=== PATIENT | female | born 1955 | race Caucasian/White ===

== ENCOUNTER 2020-01-12 17:20 | Emergency (ER) | payer BC, SELFPAY ==
[2020-01-12 17:26] VITALS: BP 131/73; PULSE 77; RESP 16; TEMP 36.8; O2SAT 99
--- NOTE | 2020-01-12 17:52 | ED.GENADULT ---
HPI - General Adult General Chief complaint: Skin/Abscess/Foreign Body Stated complaint: sore on left arm Time Seen by Provider: 01/12/20 17:52 Source: patient Mode of arrival: ambulatory Limitations: no limitations History of Present Illness HPI narrative: 64-year-old female patient presents to the [facility] with complaints of a sore on her left elbow area. Patient states is been there for several months and was supposed to have it removed however her surgery got canceled due to the pandemic. Patient states that she noticed that an area of it was starting to get red but denies any warmth. States it is a little tender when it is touched. Patient denies any fevers, chest pain or shortness of breath. Patient states that she called her doctor and they recommended that she come to the ER and get a drain. Related Data Home Medications Medication Instructions Recorded Confirmed fluoxetine 20 mg PO DAILY 01/12/20 01/12/20 Allergies Allergy/AdvReac Type Severity Reaction Status Date / Time No Known Allergies Allergy Mild Unverified 01/12/20 17:55 Review of Systems Review of Systems: Narrative: CONSTITUTIONAL: Denies fever, chills, or sweats. EYES: Denies visual changes, redness, or discharge. ENT: Denies rhinorrhea, congestion, sore throat, or otalgia. CARDIOVASCULAR: Denies chest pain, palpitations, or edema. RESPIRATORY: Denies cough or dyspnea. GASTROINTESTINAL: Denies abdominal pain, nausea, vomiting, or diarrhea. GENITOURINARY: Denies dysuria or hematuria. SKIN: Denies rash or itching. Positive cyst-like wound to the left elbow MUSCULOSKELETAL: Denies back pain, joint pain, or myalgia. NEUROLOGIC: Denies headache, numbness, or weakness. PSYCHIATRIC: Denies anxiety or depression. PMFSH Family History Family History Other Cerebrovascular accident Family history of arthritis Social History Social History Smoking status: Never smoker Alcohol intake: current Comments At the time of my signature I agree with nursing past medical history, surgical, social, and family history. There is no relevant family history pertinent to the presenting complaint. Exam Narrative: Exam Narrative: GENERAL: Well-appearing, well-nourished, and in no acute distress. HEAD: Normocephalic, atraumatic. EYES: PERRLA and EOMI. ENT: Nares clear, no rhinorrhea or epistaxis. Mucous membranes moist. NECK: Supple. No lymphadenopathy CHEST: Clear to auscultation. No respiratory distress. HEART: Regular rate and rhythm. No murmur heard. Normal peripheral pulses. ABDOMEN: Soft, nontender, nondistended, normal active bowel sounds. EXTREMITIES: Normal range of motion. No edema. SKIN: Warm, dry, no rash. Patient has a small 0.5 raised papule to the left elbow area on the posterior side. There is no open wounds or drainage noted. There is no surrounding erythema or warmth noted. NEURO: No focal deficits. Alert and oriented x3. Course Vital Signs Vital signs: Vital Signs Temperature 36.8 C 01/12/20 17:26 Pulse Rate 77 01/12/20 17:26 Respiratory Rate 16 01/12/20 17:26 Blood Pressure 131/73 01/12/20 17:26 Pulse Oximetry 99 01/12/20 17:26 Temperature 36.8 C 01/12/20 17:26 Pulse Rate 77 01/12/20 17:26 Respiratory Rate 16 01/12/20 17:26 Blood Pressure 131/73 01/12/20 17:26 Pulse Oximetry 99 01/12/20 17:26 Vital signs reviewed. The patient has been informed that they may have pre-hypertension or Hypertension based on a BP reading in the department. I recommend that the patient call the primary care provider listed on their discharge instructions or a physician of their choice this week to arrange follow up for further evaluation of possible pre-hypertension or Hypertension Procedures Abscess I/D upper extremity: Date of Incision: 01/12/20 Time of Incision: 17:59 Side (if a
== END 2020-01-12 18:15 | disposition home or self-care (01) ==
PROVIDERS: Emergency Provider Nurse Practitioner Family
DX: L02.414 Cutaneous abscess of left upper limb (principal)
CPT/HCPCS: 10060; 99213; G0463

== ENCOUNTER 2020-08-09 15:12 | Outpatient (CLI) | payer BC, SELFPAY ==
--- NOTE | ~2020-08-09 | MM_ITS ---
EXAMINATION: MM screening tommy BI w jen HISTORY: Screening TECHNIQUE: Craniocaudal and mediolateral oblique 3-D tomosynthesis images were obtained and synthetic 2-D images were generated. CAD analysis was submitted and interpreted. COMPARISON: Comparison to multiple prior studies sequentially, with oldest reviewed study dated 01/2014. BREAST PARENCHYMAL COMPOSITION: The breasts are heterogeneously dense, which may obscure small masses . FINDINGS: There is no evidence of suspicious mass, calcification, or architectural distortion to sugg est malignancy in either breast. There has been no suspicious interval change. IMPRESSION: 1. No mammographic evidence of malignancy. 2. Recommend routine screening mammography in one year. BI-RADS Category 1: Negative Reviewed, dictated and finalized at location A. STRIAL ECONOMIST
== END 2020-08-09 15:13 | disposition home or self-care (01) ==
LOC: ANHIMG 15:13
PROVIDERS: PCP Obstetrics & Gynecology; Visit Provider Obstetrics & Gynecology
DX: Z12.31 Encounter for screening mammogram for malignant neoplasm of breast (principal)
CPT/HCPCS: 77063; 77067

== ENCOUNTER 2021-09-07 07:55 | Outpatient (CLI) | payer BC, SELFPAY ==
--- NOTE | ~2021-09-07 | MM_ITS ---
EXAMINATION: MM screening tommy BI w jen HISTORY: Screening mammogram, family history of breast cancer in her mother. TECHNIQUE: Craniocaudal and mediolateral oblique 3-D tomosynthesis images were obtained and synthetic 2-D images were generated. CAD analysis was submitted and interpreted. COMPARISON: 08/09/2020, 06/23/2019, 06/19/2018 BREAST PARENCHYMAL COMPOSITION: The breasts are heterogeneously dense, which may obscure small masses . FINDINGS: Again noted is stable architectural distortion of left breast at the site of prior excision al biopsy. There is no evidence of suspicious mass, calcification, or architectural distortion to sug gest malignancy in either breast. There has been no suspicious interval change. IMPRESSION: 1. No mammographic evidence of malignancy. 2. Recommend routine screening mammography in one year. BI-RADS Category 2: Benign finding(s). Reviewed, dictated and finalized at location A. TRONICS MAINTENANCE TECHNICIAN
== END 2021-09-07 07:56 | disposition home or self-care (01) ==
LOC: ANHIMG 07:57
PROVIDERS: PCP Obstetrics & Gynecology; Visit Provider Obstetrics & Gynecology
DX: Z12.31 Encounter for screening mammogram for malignant neoplasm of breast (principal)
CPT/HCPCS: 77063; 77067

== ENCOUNTER 2022-10-11 12:31 | Outpatient (CLI) | payer MEDICARE, SELFPAY ==
--- NOTE | ~2022-10-11 | MM_ITS ---
EXAMINATION: MM screening tommy BI w jen HISTORY: Screening mammogram TECHNIQUE: Craniocaudal and mediolateral oblique 3-D tomosynthesis images were obtained and synthetic 2-D images were generated. CAD analysis was submitted and interpreted. COMPARISON: September 07, 2021, August 09, 2020, June 23, 2019 bilateral screening mammogram exami nations BREAST PARENCHYMAL COMPOSITION: The breasts are heterogeneously dense, which may obscure small masses . FINDINGS: There is a biopsy marker on the right; history of prior benign bilateral breast biopsies. S table fibroglandular asymmetry. There is no evidence of suspicious mass, calcification, or architectu ral distortion to suggest malignancy in either breast. There has been no suspicious interval change. IMPRESSION: 1. No mammographic evidence of malignancy. 2. Recommend routine screening mammography in one year. BI-RADS Category 2: Benign finding(s). Reviewed, dictated and finalized at location A.
== END 2022-10-11 12:32 | disposition home or self-care (01) ==
LOC: ANHIMG 12:32
PROVIDERS: PCP Hospitalist; Visit Provider Obstetrics & Gynecology
DX: Z12.31 Encounter for screening mammogram for malignant neoplasm of breast (principal)
CPT/HCPCS: 77063; 77067

== ENCOUNTER 2023-12-11 08:27 | Outpatient (CLI) | payer MEDICARE, SELFPAY ==
--- NOTE | ~2023-12-11 | MM_ITS ---
EXAMINATION: MM screening tommy BI w jen HISTORY: Screening mammogram, family history of breast cancer in her mother. TECHNIQUE: Craniocaudal and mediolateral oblique 3-D tomosynthesis images were obtained and synthetic 2-D images were generated. CAD analysis was submitted and interpreted. COMPARISON: 10/11/2022, 09/07/2021, 08/09/2020 BREAST PARENCHYMAL COMPOSITION:Dense: The breasts are heterogeneously dense, which may obscure small masses. FINDINGS: No suspicious mass, calcification, or architectural distortion are identified in either alex ast to suggest malignancy. There has been no suspicious interval change. IMPRESSION: No mammographic evidence of malignancy. Recommend routine screening mammography in one year. BI-RADS Category 1: Negative Reviewed, dictated and finalized at location .
== END 2023-12-11 08:28 | disposition home or self-care (01) ==
PROVIDERS: PCP Hospitalist; Visit Provider Obstetrics & Gynecology
DX: Z12.31 Encounter for screening mammogram for malignant neoplasm of breast (principal)
CPT/HCPCS: 77063; 77067

== ENCOUNTER 2024-12-25 09:27 | Outpatient (CLI) | payer MEDICARE, SELFPAY ==
--- NOTE | ~2024-12-25 | MM_ITS ---
EXAMINATION: MM screening tommy BI w jen HISTORY: Screening TECHNIQUE: Craniocaudal and mediolateral oblique 3-D tomosynthesis images were obtained and synthetic 2-D images were generated. CAD analysis was submitted and interpreted. COMPARISON: Comparison to multiple prior studies sequentially, with oldest reviewed study dated 05/31. BREAST PARENCHYMAL COMPOSITION: Dense: The breasts are extremely dense, which lowers the sensitivity of mammography. FINDINGS: There is no evidence of suspicious mass, calcification, or architectural distortion to sugg est malignancy in either breast. There has been no suspicious interval change. IMPRESSION: 1. No mammographic evidence of malignancy. 2. Recommend routine screening mammography in one year. BI-RADS Category 1: Negative Reviewed, dictated and finalized at location A.
--- OUTSIDE RECORDS SUMMARY | 2024-12-25 09:31 | XMS_ITS | Clinical Summary ---
Author Organization [facility] Address [address] [place] [address] Phone Care Team Providers Care Field Consultant Name Role Phone Unavailable Primary Care Provider Unavailabl e Allergies No known active allergies Medications risedronate (ACTONEL) 150 mg Oral Tab Take 150 mg by mouth every 30 days. Active FLUoxetine (PROZAC) 40 mg Oral capsule Take 40 mg by mouth daily. Active CALCIUM CITRATE/VITAMIN D3 (CITRACAL + D ORAL) Take 800 mg by mouth daily. Active omeprazole (PRILOSEC) 20 mg Oral CpDRIndications :Sore throat Take 1 Cap by mouth daily. 30 minutes before breakfast. 30 Cap 6 3 Active cholestyramine, with sugar, (QUESTRAN) 4 gram Oral PackIndications :Diarrhea Take 1 Packet by mouth 2 times daily. Take 2 hours before or after other medications 60 Packet 6 3 Active Active Problems Patient Care Coordination No te Formatting of this note migh t be different from the original. GI-[facility] No known active problems Family History Medical History Relation Name Comments Celiac Disease Neg Hx Colon Cancer Neg Hx Colon Polyps Neg Hx Crohn's Disease Neg Hx Inflammatory Bowel Disease Neg Hx Liver Disease Neg Hx Pancreatic Cancer Neg Hx Ulcerative Colitis Neg Hx Relation Name Status Comments Father Alive Mother Social History Tobacco Use Types Packs/Day Years Used Date Smoking Tobacco: Never Cigarettes Smokeless Tobacco: Never Alcohol Use Standard Drinks/Week Comments No 0 (1 standard drink = 0.6 oz pur e alcohol) Comments Unknown Sex and Gender Information Value Date Recorded Sex Assigned at Not on file Legal Sex 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 Gender Identity Not on file Sexual Orientation Not on file Last Filed Vital Signs Vital Sign Reading Time Taken Comments Blood Pressure 124/70 12/30/2012 9:11 AM CDT Pulse 76 12/30/2012 9:11 AM CDT Temperature 36.2 C (97.1 F) 12/06/2011 9:37 AM CDT Respiratory Rate 16 12/06/2011 10:06 AM CDT Oxygen Saturation 96% 12/06/2011 10:06 AM CDT Inhaled Oxygen Concentration - - Weight 54.9 kg (121 lb) 12/30/2012 9:11 AM CDT Height 160 cm (5' 3) 12/30/2012 9:11 AM CDT Body Mass Index 21.43 12/30/2012 9:11 AM CDT Plan of Treatment Health Maintenance Due Date Last Done Comments DTAP/TDAP/TD VACCINES (1 - Tdap) 1976 BREAST CANCER SCREENING 1997 FIT-DNA Q 3 years 2002 FIT/FOBT Q 1 year 2002 Flex Sig/CT Colonography Q 5 years 2002 PNEUMOCOCCAL VACCINE 50+ YEA RS (1 of 1 - PCV) 2007 ZOSTER VACCINE (1 of 2) 2007 COLORECTAL SCREENING 11/17/2020 11/17/2010, 11/18/19 11 Colorectal Cancer Screening 11/17/2020 OSTEOPOROSIS SCREENING 2022 INFLUENZA VACCINE (#1) 2024 03/18/2020 RSV VACCINE (60+ or ) (1 - 1-dose 75+ series) 2032 [place] [address] [facility] BLUE ACCESS/TRUE BLUE PPO Advance Directives For more information, please contact: [phone] * Full Code (Latest Code Status on File) Date Activated Date Inactivated Comments 12/06/2011 7:38 AM 12/07/2011 2:01 AM * Full Code Date Activated Date Inactivated Comments 11/17/2010 8:14 AM 11/18/2010 2:32 AM
--- OUTSIDE RECORDS SUMMARY | 2024-12-25 09:31 | XMS_ITS | Encounter Summary ---
Author Organization [facility] Address [address] [facility] [address] Attn: [place] [address] Care Team Providers Care Lot Worker Name Role Phone Unavailable Primary Care Provider Unavailabl e Encounter Details Date Type Department Care Team (Late st Contact Info) Description 07/07/1991 Outpatient Historical Marce South MD [address] [place] [address] [address] [place] [address] Social History Tobacco Use Types Packs/Day Years Used Date Smoking Tobacco: Never Assessed Comments Unknown Sex and Gender Information Value Date Recorded Sex Assigned at Not on file 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
--- OUTSIDE RECORDS SUMMARY | 2024-12-25 09:31 | XMS_ITS | Continuity of Care Document ---
Author Organization [facility] Address [address] [place] [address] Phone Care Team Providers Care Associate Designer Name Role Phone Laury OD, Chey Unavailable Unavailable Allergies, Adverse Reactions, Alerts Substance Reaction Status Criticality No Known Allergies Active No Inform ation Medications Medication Instructions Dosage Effective Dates (start - stop) Status Comments prednisolone acetate 1 % eye drops,suspension instill 1 drop by ophthalmic route 4 times every day into operative eye for 2 weeks, then 2 times per day for 2 weeks, then stop - Active moxifloxacin 0.5 % eye drops instill 1 drop by ophthalmic route 4 times every day into operative eye for 2 weeks, then stop - Active ketorolac 0.5 % eye drops instill 1 drop in operative eye 4 times every day for 2 weeks, then 2 times per day for 2 weeks, then stop - Active Prilosec OTC 20 mg tablet,delayed release take 1 tablet by oral route every day 1 tablet - Active Calcium 500 + D 500 mg-10 mcg (400 unit) tablet - Active Actonel 150 mg tablet take 1 tablet by o ral route every month on the same date; Take with a full glass of water and remain in an upright position 150 MG - Active fluoxetine 20 mg capsule take 2 capsule by oral route every day in the morning 40 MG - Active Procedures Procedure Date Laser Cataract SX With Toric Lens No Charge Refraction Post-op Follow-up Visit Drainage Of Eye Post-op Follow-up Visit [facility]Professional No Charge Refraction No Charge Optomap Fundus Photos 023 Post-op Follow-up Visit Post-op Follow-up Visit Laser Cataract SX With Toric Lens Remove Cataract, Insert Lens [facility]Professional No Charge GDX Retina [facility]Technical No Charge Refraction Office/outpatient Visit, [facility] No Charge [employer] Advance Directives Directive Yes / No Effective Date File Name No Information Encounters Encounter Description Practice Location Reason(s) For Visit Diagnoses Date Provider Providers Copied on Encounter [facility], [address] [place] [address] [address], [place], [place], [id number], tel:[phone] SEC John OTERO Professional No Information 4 Laury OD Chey. [address] [place] [address] [address], [address], [place], [place], [address], [place]. tel:[phone] [facility], [address] [place] [address] [address], [place], [place], [address], [place] tel:[phone] [facility] [place] No Information 3 Ros Mora. [address] [place], [place] [address], [address], [place], [place], [address], [place]. tel:[phone] Referring Provider: Will Coffey OD, [facility] [address], [place], [address]. tel:[phone] [facility], [address], [place], [place], [address], [place] tel:[phone] SEC [place] Professional Post-Op (chief complaint) Post op visit 3 Jens OD Jennifer. [address], [address], [place], [place], [address], [place]. tel:[phone] Referring Provider: Will Coffey OD, [facility] [address] [place], [address]. tel:[phone] [facility], [address], [place], [place], [address], [place] tel:[phone] SEC [place] Professional 1 day s/p TORIC IOL w/LensAR (chief complaint) Post op visitAqueous misdirection, left eye 3 Hernadez Sergo. [address] [facility], [address], [place], [place], [address], [place]. tel:[phone] Referring Provider: Will Coffey OD, [facility] [address] [place], [address]. tel:[phone] [facility], [address], [place], [place], [address], [place] tel:[phone] SEC [place] No Information 3 [place]. [facility] [address], [address], [place], [place], [address], [place]. tel:[phone] Referring Provider: Will Coffey OD, [facility] [address] [place], [address]. tel:[phone] [facility], [facility] [employer] [address], [place], [place], [address], [place] tel:[phone] SEC [place] Professional Cataract evaluation (chief complaint) Post op visit [address] [facility] [address], [address], [place], [place], [address], [place]. tel:[phone] Referring Provider: Will Coffey OD, [facility] [address] [place], [address]. tel:[phone] [facility], [facility] [employer] [address], [place], [place], [address], [place] tel:[phone] SEC John OTERO Professional 1 day postop (chief complaint) Post op visit 3 Satya Trotter. [address], [address] [place], [address], [place]. tel:[phone] Referring Provider: Will Coffey OD, [facility] [address] [place] [address], [address]. tel:[phone] [facility], [address] [place] [address] [address], [place], [place], [address], [place] tel:[phone] [facility] No Information 3 Satya Trotter. [address], [address] [place], [address], [place]. tel:[phone] Referring Provider: Will Coffey OD, [facility] [address] [place] [address], [address]. tel:[phone] [facility], [address], [place], [place], [address], [place] tel:[phone] SEC John OTERO Professional No Information 3 Satya Trotter. [address] [facility], [address] [place], [address], [place]. tel:[phone] Referring Provider: Will Coffey OD, [facility] [address] [place] [address], [address]. tel:[phone] [facility], [address], [place], [place], [address], [place] tel:[phone] SEC John OTERO Professional No Information 3 Satya Trotter. [address], [place], [address], [place]. tel:[phone] Office/outpa tient Visit, New [facility], [address], [place], [place], [address], tel:[phone] [employer] John SHANNA Professional Cataract evaluation (chief complaint) Age-related nuclear cataract, bilateral 3 Satya Trotter. [address] [facility], [address], [place], [place], [address], [place]. tel:[phone] Referring Provider: Will Coffey OD, [facility] [address] [facility] [facility], [place], [address]. tel:[phone] [facility], [address], [place], [place], [address], tel:[phone] [employer] SHANNA Professional No Information 3 Satya Trotter. [address] [facility], [address], [place], [place], [address], [place]. tel:[phone] Family History Family Member Type Diagnosis Age At Onset No Information Payers Payer name Insurance type Covered green party ID Authoriza tion(s) No Information Social History Type Description Quantity Date Captured Comments Alcohol Use Details Unknown Caffeine Use Details Unknown Tobacco Use Status No Information Smoking Status No Information Sex Female Chief Complaint And Reason For Visit No Information Reason For Referral Reason For Referral No Information Plan Of Treatment Date Type Action Status Patient Education The Eye: Anatomy Sketch completed History Of Present Illness Encounter Date Complaint History Of Prese nt Illness Post-Op The 67 year old patient presents for a 3 week post op CE with Toric IOL OS. Patient is using Pred and Ketorolac bid OS. Patient states ou is doing good. 1 day s/p TORIC IOL w/LensAR The 67 year old patient presents for evaluation of 1 day s/p TORIC IOL w/LensAR in the left eye. Patient states VA is brighter. Patient instructed to use Pred, Ket, and Poly as well as use of eye shield. Cataract evaluation The 67 year old patient presents for evaluation of Cataract evaluation in the left eye. Pt. had Toric PC/IOL w/ Lens AR OD 11/27/2022. Pt. is using Moxifloxacin qid, Pred. qid, and Ketorolac qid.Pt. states vision in OS is blurry. Pt. is having trouble seeing small print, watching tv, and seeing people across the street in OS. 1 day postop The 67 year old patient presents for evaluation of 1 day postop in the right eye. Pt. had Toric/IOL w/ Lens AR OD 11/27/2022. Pt. to start Pred 1% qid, Ketorolac qid, and Moxi qid. Reviewed postop instructions with patient. Pt. states no pain overnight. Things are brighter in OD. Cataract evaluation The 67 year old patient presents for evaluation of Cataract evaluation in the right eye and left eye. Pt denies any past ocular Sx or injuries, OU. Pt reports she doesn't use any gtts, OU. Pt reports she has trouble reading small print up close, watching tv, and recognizing people's faces from across the street, OU, x 8 mos. Functional Status Date Functional Assessmen t No Information Instructions Date Instruction Additional Infor maria elena Impression/Plan Impression/Plan Impression/Plan Impression/Plan Impression/Plan Assessments Type Assessment Date No Information Patient Care Teams Name Effective Dates (start - stop) Status Members No Information
--- OUTSIDE RECORDS SUMMARY | 2024-12-25 09:32 | XMS_ITS | Referral Summary ---
Author Organization [facility] Address [address] [place] [address] Care Team Providers Care Auto Brake Technician Name Role Phone Omid Dimas MD Primary Care Provider [phone] Encounters Date Type Department Care Team Description 11/25/2024 8:00 AM CDT [facility] Visit [facility] [address] [address] Omid Dimas MD Medicare annual wellness visit, subsequent (Primary Dx); Need for hepatitis B screening test; Encounter for screening mammogram for malignant neoplasm of breast; Dyslipidemia; Age-related osteoporosis without current pathological fracture 11/19/2024 Results Follow-Up [facility] [address] [address] Omid Dimas MD Comprehensive metabolic panel, CBC with auto differential, Lipid panel, Additional followed-up results: 5 11/19/2024 10:00 AM CDT Lab [facility] [address] [place] [id number] Dyslipidemia; Need for hepatitis B screening test 11/18/2024 Telephone [facility] [address] [address] Omid Dimas MD labwork from Last 3 Months Allergies Active Allergy Reactions Criticality Noted Date Comments Gluten Diarrhea Low 05/20/2021 Lactose Diarrhea Low 05/20/2021 Mupirocin Hives Medium 05/20/2021 Medications FLUoxetine (PROzac) 20 mg capsule 04/11/2021 Active risedronate (ACTONEL) 150 mg tablet Take 1 tablet (150 mg total) by mouth every 4 (four) weeks Active calcium carb-D3-mag ox-zinc ox (Brayden Mag Zinc Plus D3) 333 mg-133 unit -133 mg-5 mg tablet Brayden Mag Zinc Plus D3 333 mg-133 unit-133 mg-5 mg tablet Take by oral route. Active omeprazole OTC (PriLOSEC OTC) 20 mg EC tablet Take 1 tablet (20 mg total) by mouth daily Active Active Problems Problem Noted Date Diagnosed Date Cortical age-related cataract of both eyes 12/12 Assessment & Plan (11/22/2023 4:53 PM CDT): Well controlled; status post cataract surgery; good vision in both eyes Assessment & Plan (12/12/2022 3:51 PM CDT): Stable, well controlled; patient has scheduled for cataract surgery on left and right eyes and separate dates Patient has no contraindications for surgery, no further pre-surgical evaluation required Age-related osteoporosis wit hout current pathological fracture 06/10/2021 Assessment & Plan (11/25/2024 2:52 PM CDT): Stable, well controlled; tolerating medication well with no falls or fractures Continue risedronate 150 mg monthly; calcium and vitamin-D supplementation Assessment & Plan (11/22/2023 4:52 PM CDT): Stable, well controlled; tolerating medication well with no major side effects No falls or fractures; encourage calcium and vitamin-D supplementation daily; weight-bearing activities Continue risedronate 150 mg monthly Assessment & Plan (12/12/2022 3:51 PM CDT): Stable, continue risedronate 150 mg monthly Continue calcium and vitamin-D supplementation Assessment & Plan (06/10/2021 1:54 PM CIRCUITS ENGINEER): Stable, continue to monitor, biannual bone density to monitor changes in bone denisty -continue Actnoel 150 mg monthly, with Ca and VitD supplementation Menopause syndrome 06/10/2021 Assessment & Plan (11/22/2023 4:53 PM CDT): Stable, well controlled, improving; patient reports he had been tapering her Prozac; continues to have few postmenopausal symptoms Continue fluoxetine 20 mg daily Assessment & Plan (06/10/2021 1:54 PM CIRCUITS ENGINEER): Stable, well controlled, continue Prozac 20 mg daily Encounter for screening colonoscopy 06/09/2021 Overview (06/09/2021): Added automatically from request for surgery [id number] Photoaged skin 09/12/2016 Skin neoplasm 08/11/2013 Actinic keratosis 08/11/2013 Immunizations Immunization Administration Dates Next Due Influenza, Unspecified 03/28/2024,04/29/2023,05/2021 Pfizer SARS-CoV-2 Monovalent Vaccination (12+ Yrs) PURPLE 04/01/2021,03/11/2021 Tdap 07/30/2013 ZOSTER LIVE 03/08/2017 Social History Tobacco Use Types Packs/Day Years Used Date Smoking Tobacco: Never Cigarettes Smokeless Tobacco: Never Tobacco Cessation:Counseling Given: Not Answered AUDIT-C Answer Date Recorded Q1: How often do you have a drink containing alc ohol? 2-4 times a month 11/17/2022 Q2: How many drinks containi ng alcohol do you have on a typical day when you are drinking? 1 or 2 11/17/2022 Q3: How often do you have si x or more drinks on one occasion? Never 11/17/2022 PHQ-2 Answer Date Recorded PHQ-2 Total Score (If total score is 3 or more points, staff should administer the PHQ-9) 0 11/25/2024 Comments Unknown Sex and Gender Information Value Date Recorded Sex Assigned at Not on file Legal Sex Female 7:01 AM CIRCUITS ENGINEER Gender Identity Not on file Sexual Orientation Not on file Last Filed Vital Signs Vital Sign Reading Time Taken Comments Blood Pressure 100/60 11/25/2024 7:56 AM CDT Pulse 70 11/25/2024 7:56 AM CDT Temperature 36.5 C (97.7 F) 11/25/2024 7:56 AM CDT Respiratory Rate 18 11/25/2024 7:56 AM CDT Oxygen Saturation 99% 11/25/2024 7:56 AM CDT Inhaled Oxygen Concentration - - Weight 47.2 kg (104 lb) 11/25/2024 7:56 AM CDT Height 157.5 cm (5' 2) 11/25/2024 7:56 AM CDT Body Mass Index 19.02 11/25/2024 7:56 AM CDT Plan of Treatment Not on file Procedures Procedure Name Priority Date/Time Associated Diagnosis Comments EGFR Routine 11/19/2024 9:59 AM CDT Dyslipidemia DIFFERENTIAL AUTO Routine 11/19/2024 9:5 9 AM CDT Dyslipidemia LIPID PANEL Routine 11/19/2024 9:59 AM CDT Dyslipidemia CBC WITH AUTO DIFFERENTIAL Routine 11/19/2024 9:59 AM CDT Dyslipidemia COMPREHENSIVE METABOLIC PANEL Routine 11/19/2024 9:59 AM CDT Dyslipidemia HEPATITIS B SURFACE ANTIGEN Routine 11/19/2024 9:59 AM CDT Need for hepatitis B screening test HEPATITIS B CORE ANTIBODY, TOTAL Routine 11/19/2024 9:59 AM CDT Need for hepatitis B screening test HEPATITIS B SURFACE ANTIBODY (IMMUNE STATUS) Routine 11/19/2024 9:59 AM CDT Need for hepatitis B screening test SCREENING MAMMOGRAM BILATERAL W [place] Schedule Routine, Read Routine (OP Routine) 12/11/2023 Encounter for screening mammogram for malignant neoplasm of breast DEXA AXIAL SKELETON BONE DENSITY 1 OR MORE SITES Schedule Routine, Read Routine (OP Routine) 09/29/2022 COLONOSCOPY 10/17/2021 8:29 AM CDT HEPATITIS C ANTIBODY Routine 06/10/2021 10:57 AM CIRCUITS ENGINEER Encounter for hepatitis C screening test for low risk patient from Last 3 Months or Most Recently Relevant to Health Maintenance Results * eGFR (11/19/2024 9:59 AM CDT) eGFR 74 >=60 mL/min/1. 73 m2 Comment: Interpretive Data Reference Interval Normal >/= 90 mL/min/1.73m2 Mildly decreased* 60 - 89 mL/min/1.73m2 Mildly to moderately decreased 45 - 59 mL/min/1.73m2 Moderately to severely decreased 30 - 44 mL/min/1.73m2 Severely decreased 15 - 29 mL/min/1.73m2 Kidney Failure < 15 mL/min/1.73m2 *Relative to young adult level Estimated glomerular filtration rate is determined by the 2020 CKD-EPI equation recommended by the National Kidney Foundation (A Unifying Approach to GFR Estimation: Recommendations of the NKF-ASK Task Force on Reassessing the Inclusion of Race in Diagnosing Kidney Disease, JASN 2020). The CKD-EPI equation should not be used for patients with unstable renal function and has not been validated in children and those over 70. Current interpretive data was last reviewed 2021. Testing performed by: [facility], [address] [place] [address]., [id number] Blood 11/19/2024 9:59 AM CDT 11/19/2024 2:47 PM CDT us Omid Dimas MD LAB BLOOD ORDERABLES Yamel zimmerman Result [facility] ([place]) 1 [facility] Department [place] [address] * Differential, auto (11/19/2024 9:59 AM CDT) Neutrophil abs 1.97 1.50 - 6.50 K/cumm Comment:Testing performed by : [facility], [address] [place] [address]., [address] Imm gran abs 0.00 0.00 - 0.10 K/cumm [facility] ([place]) Comment:Testing performed by : [facility], [address] [place] [address]., [address] Lymphocyte abs 1.62 0.80 - 3.30 K/cumm [facility] ([place]) Comment:Testing performed by : [facility], [address] [place] [address]., [address] Monocyte abs 0.34 0.20 - 0.80 K/cumm [facility] ([place]) Comment:Testing performed by : [facility], [address] [place] [address]., [address] Eosinophil abs 0.05 0.00 - 0.50 K/cumm [facility] ([place]) Comment:Testing performed by : [facility], [address] [place] [address]., [address] Basophil abs 0.03 0.00 - 0.10 K/cumm [facility] ([place]) Comment:Testing performed by : [address] [address] Neutrophil pct 49.2 % [facility] ([place]) Comment: Interpretive Data Percent cell count reference ranges are not reported, since discordance with absolute values may lead to misinterpretation of CBC data. Current Interpretive Data was last revised on 2017. Testing performed by: [facility], [address] [place] [address]., [address] Imm gran pct 0.0 % [facility] ([place]) Comment: Interpretive Data Percent cell count reference ranges are not reported, since discordance with absolute values may lead to misinterpretation of CBC data. Current Interpretive Data was last revised on 2017. Testing performed by: [facility], [address] [place] [address]., [address] Lymphocyte pct 40.4 % [facility] ([place]) Comment: Interpretive Data Percent cell count reference ranges are not reported, since discordance with absolute values may lead to misinterpretation of CBC data. Current Interpretive Data was last revised on 2017. Testing performed by: [address] [address] Monocyte pct 8.5 % [facility] ([place]) Comment: Interpretive Data Percent cell count reference ranges are not reported, since discordance with absolute values may lead to misinterpretation of CBC data. Current Interpretive Data was last revised on 2017. Testing performed by: [address] [address] Eosinophil pct 1.2 % [facility] ([place]) Comment: Interpretive Data Percent cell count reference ranges are not reported, since discordance with absolute values may lead to misinterpretation of CBC data. Current Interpretive Data was last revised on 2017. Testing performed by: [address] [address] Basophil pct 0.7 % [facility] ([place]) Comment: Interpretive Data Percent cell count reference ranges are not reported, since discordance with absolute values may lead to misinterpretation of CBC data. Current Interpretive Data was last revised on 2017. Testing performed by: [address], [address] Blood 11/19/2024 9:59 AM CDT 11/19/2024 2:40 PM CDT us Omid Dimas MD LAB BLOOD ORDERABLES Yamel zimmerman Result [facility] ([place]) 1 [facility] Department [place] [address] * (ABNORMAL) CBC with auto differential (11/19/2024 9:59 AM CDT) WBC 4.01 3.80 - 9.90 K/cumm Comment:Testing performed by : [address], [address] Hgb 11.0(L) 11.9 - 15.5 g/dL [facility] ([place]) Comment:Testing performed by : [address], [address] Hct 35.1(L) 35.6 - 45.5 % [facility] ([place]) Comment:Testing performed by : [address] [address] Plt 283 150 - 400 K/cumm [facility] ([place]) Comment:Testing performed by : [address], [address] MPV 9.8 9.1 - 12.3 fL [facility] ([place]) Comment:Testing performed by : [address], [address] RBC 3.66(L) 3.90 - 5.20 M/cumm [facility] ([place]) Comment:Testing performed by : [facility], [address] [place] [address], [address] MCV 95.9 81.3 - 96.4 fL [facility] ([place]) Comment:Testing performed by : [facility], [address] [place] [address], [address] MCH 30.1 27.1 - 33.3 pg [facility] ([place]) Comment:Testing performed by : [facility], [address] [place] [address], [address] MCHC 31.3(L) 32.3 - 35.7 g/dL [facility] ([place]) Comment:Testing performed by : [facility], [address] [place] [address], [address] RDW CV 12.7 11.1 - 14.9 % [facility] ([place]) Comment:Testing performed by : [address], [address] RDW SD 45.0 35.7 - 48.1 fL [facility] ([place]) Comment:Testing performed by : [facility], [address] [place] [address], [address] NRBC abs 0.00 0.00 - 0.01 K/cumm [facility] ([place]) Comment:Testing performed by : [address], [address] Blood 11/19/2024 9:59 AM CDT 11/19/2024 2:40 PM CDT us Omid Dimas MD LAB BLOOD ORDERABLES Yamel zimmerman Result [facility] ([place]) 1 [facility] Department of Laboratories [place], [place] [id number] * Hepatitis B core antibody, total Blood (11/19/2024 9:59 AM CDT) Pathologist [facility] Hep B core IgG/IgM Nonreactive Nonreactive Comment:Testing performed by : [facility], [address] [place]., [address] Blood 11/19/2024 9:59 AM CDT 11/20/2024 2:11 PM CDT Omid Dimas MD LAB MICROBIOLOGY - GENERA L ORDERABLES Final Result Performing Organization Address City/[facility] Co de Phone Number [facility] ([place]) [address] [place] [address] * Hepatitis B surface antibody (immune status) Blood (11/19/2024 9:59 AM CDT) HBsAb (immune status) Nonreactive Comment: Interpretive Data Nonreactive: This result is consistent with a lack of immunity to Hepatitis B Virus when used in the setting of routine screening. Equivocal: The immune status of the individual should be further assessed, if appropriate, after consideration of clinical status, risk factors, and additional diagnostic information. Reactive: This result is consistent with immunity to Hepatitis B Virus when used in the setting of routine screening. Current interpretive data was last revised on 19. Testing performed by: [address], [address] Blood 11/19/2024 9:59 AM CDT 11/19/2024 2:44 PM CDT Omid Dimas MD LAB MICROBIOLOGY - GENERA L ORDERABLES Final Result Performing Organization Address City/[facility] Co de Phone Number [facility] ([place]) [address] [place] [address] * Hepatitis B Surface Antigen Blood (11/19/2024 9:59 AM CDT) HepBsAg Nonreactive Nonreactive Comment:Testing performed by : [address], [address] Blood 11/19/2024 9:59 AM CDT 11/19/2024 2:44 PM CDT Oimd Dimas MD LAB MICROBIOLOGY - GENERA L ORDERABLES Final Result [facility] ([place]) 1 [facility] [place] [address] * Lipid panel (11/19/2024 9:59 AM CDT) Cholesterol 191 30 - 199 mg/dL Comment: Interpretive Data Ages < or = 19 years Acceptable: <170 mg/dL Borderline high: 170-199 mg/dL High: >or= 200 mg/dL Ages > or = 20 years Desirable: <200 mg/dL Borderline high: 200-239 mg/dL High: >or= 240 mg/dL Literature References: 1. Expert Panel on Integrated Guidelines for Cardiovascular Health and Risk Reduction in Children and Adolescents. Pediatrics 2011;128:S213 2. NCEP Expert Panel. Circulation 2004;110:227 Current Interpretive Data was last revised on 2018. Testing performed by: [address] [address] Triglycerides 67 <=149 mg/dL [facility] ([place]) Comment: Interpretive Data Ages < or = 9 years Acceptable: <75 mg/dL Borderline high: 75-99 mg/dL High: >or= 100 mg/dL Ages 10 to 20 years Acceptable: <90 mg/dL Borderline high: 90-129 mg/dL High: >or= 130 mg/dL Ages > or = 20 years Desirable: <150 mg/dL Borderline high: 150-199 mg/dL High: 200-499 mg/dL Very high: >or= 499 mg/dL Literature References: 1. Expert Panel on Integrated Guidelines for Cardiovascular Health and Risk Reduction in Children and Adolescents. Pediatrics 2011;128:S213 2. NCEP Expert Panel. Circulation 2004;110:227 Current Interpretive Data was last revised on 2018. Testing performed by: [facility], [address] [place] [address]., [address] HDL 68 >=40 mg/dL [facility] ([place]) Comment: Interpretive Data Ages < or = 19 years Acceptable: >45 mg/dL Borderline low: 40-45 mg/dL Low: <40 mg/dL Ages > or = 20 years Desirable: >or= 60 mg/dL Low: <40 mg/dL Literature References: 1. Expert Panel on Integrated Guidelines for Cardiovascular Health and Risk Reduction in Children and Adolescents. Pediatrics 2011;128:S213 2. NCEP Expert Panel. Circulation 2004;110:227 Current Interpretive Data was last revised on 2018. Testing performed by: [facility], [address] [place] [address]., [address] LDL, calculated 111 <=129 mg/dL [facility] ([place]) Comment: Interpretive Data Ages < or = 19 years Acceptable: <110 mg/dL Borderline high: 110-129 mg/dL High: >or= 130 mg/dL Ages > or = 20 years Optimal: <100 mg/dL Near optimal: 100-129 mg/dL Borderline high: 130-159 mg/dL High: >160 mg/dL Calculated using the Tahir LDL-C estimating equation. This equation was implemented on 2024. Prior to this date LDL-C was estimated using the Friedewald equation. Literature References: 1. Expert Panel on Integrated Guidelines for Cardiovascular Health and Risk Reduction in Children and Adolescents. Pediatrics 2011;128:S213 2. NCEP Expert Panel. Circulation 2004;110:227 3. Tahir Irene et al. BALAJI Cardiol. 2019November 27;5(5):540-548. doi: 10.1001/jamacardio.2020.0013 Current Interpretive Data was last revised on 2024. Testing performed by: [address] [address] Non-HDL Cholesterol 123 mg/dL [facility] ([place]) Comment: Interpretive Data Ages < or = 19 years Acceptable: <120 mg/dL Borderline high: 120-144 mg/dL High: >145 mg/dL Ages > or = 20 years When triglycerides are >200 mg/dL, Non-HDL cholesterol is a secondary target of therapy with treatment goals that are 30 mg/dL greater than the LDL cholesterol target. Literature References: 1. Expert Panel on Integrated Guidelines for Cardiovascular Health and Risk Reduction in Children and Adolescents. Pediatrics 2011;128:S213 2. NCEP Expert Panel. Circulation 2004;110:227 Current Interpretive Data was last revised on 2018. Testing performed by: [facility], [address] [place] [address]., [address] Chol/HDL ratio 3 [facility] ([place]) Comment:Testing performed by : [facility], [address] [place] [address]., [address] Blood 11/19/2024 9:59 AM CDT 11/19/2024 2:39 PM CDT Omid Dimas MD LAB BLOOD ORDERABLES Yamel elsie Result [facility] ([place]) 1 [facility] Department [place] [address] * (ABNORMAL) Comprehensive metabolic panel (11/19/2024 9:59 AM CDT) Sodium 134(L) 135 - 145 mmol/L Comment:Testing performed by : [address] [address] Potassium, pl 4.5 3.3 - 4.9 mmol/L [facility] ([place]) Comment:Testing performed by : [facility], [address] [place] [address], [address] Chloride 97 97 - 110 mmol/L [facility] ([place]) Comment:Testing performed by : [address] [address] CO2 29 22 - 32 mmol/L [facility] ([place]) Comment:Testing performed by : [address] [address] Anion gap 8 2 - 15 mmol/L [facility] ([place]) Comment:Testing performed by : [address] [address] BUN 12 6 - 25 mg/dL [facility] ([place]) Comment:Testing performed by : [address], [address] Creatinine 0.86 0.60 - 1.10 mg/dL [facility] ([place]) Comment:Testing performed by : [address], [address] Glucose 82 70 - 199 mg/dL [facility] ([place]) Comment: Interpretive Data Fasting glucose >/= 126 mg/dl is diagnostic for diabetes. Fasting is defined as no caloric intake for at least 8 hours. Fasting glucose between 100 mg/dl to 125 mg/dl is diagnostic of prediabetes. In a patient with classic symptoms of hyperglycemia or hyperglycemic crisis, a random glucose >/= 200 mg/dl is diagnostic for diabetes. In the absence of unequivocal hyperglycemia, results should be confirmed by repeat testing. The classification and Diagnosis of Diabetes Diabetes Care 2021; 46: S19-S40. Current interpretive data was last revised 2022. Testing performed by: [facility], [address] [place] [address], [address] Calcium 9.3 8.5 - 10.3 mg/dL [facility] ([place]) Comment:Testing performed by : [address], [address] Bilirubin, total 0.5 0.1 - 1.2 mg/dL [facility] ([place]) Comment:Testing performed by : [address], [address] Protein, pl 6.8 6.5 - 8.5 g/dL [facility] ([place]) Comment:Testing performed by : [facility], [address] [place] [address], [address] Albumin 3.9 3.5 - 5.0 g/dL [facility] ([place]) Comment:Testing performed by : [address], [address] Alk phos 70 40 - 130 Units/L [facility] ([place]) Comment:Testing performed by : [address], [address] ALT 8 7 - 45 Units/L [facility] ([place]) Comment:Testing performed by : [address], [address] AST 21 10 - 45 Units/L [facility] ([place]) Comment:Testing performed by : [address], [address] Blood 11/19/2024 9:59 AM CDT 11/19/2024 2:39 PM CDT us Omid Dimas MD LAB BLOOD ORDERABLES Yamel zimmerman Result [facility] ([place]) 1 [facility] Department [place] [address] * SCREENING MAMMOGRAM BILATERAL W [place] (12/11/2023) Anatomical Region Laterality Modality Breast Bilateral Mammography us Omid Dimas MD IMG MAMMO PROCEDURES Yamel l Result * Dexa Axial Skeleton Bone Density 1 or 2 Site (09/29/2022) Anatomical Region Laterality Modality Body N/A Radiographic Louise ging us Historical Provider IMG DXA PROCEDURES Final Result * COLONOSCOPY (10/17/2021 8:29 AM CDT) Anatomical Region Laterality Modality Other Narrative Procedure Note Bridger Thomas MD - 10/17/2021 8:29 AM CDT [facility] Patient Name: Kerry Vasques Procedure Date: 10/17/2021 8:29 AM Date of : 1955 Admit Type: Outpatient Age: 66 Gender: Female Attending MD: Bridger Thomas M.D. Room: [facility]COPY ROOM 2 Note Status: Finalized Patient Profile: Refer to note in patient chart for documentation of history and physical. Procedure: Colonoscopy Indications: Screening for colorectal malignant neoplasm, Last colonoscopy: 2011 Referring MD: Omid Dimas M.D. Providers: Bridger Thomas M.D. Impression: - Hemorrhoids found on perianal exam. - Diverticulosis in the transverse colon and in the ascending colon. - The examination was otherwise normal. - No specimens collected. Recommendation: - Discharge patient to home. - Resume previous diet. - Continue present medications. - Repeat colonoscopy in 10 years for screening purposes. - Return to primary care physician as previously scheduled. Medicines: Propofol per Anesthesia Complications: No immediate complications. Estimated Blood Loss: Estimated blood loss: none. Procedure: Pre-Anesthesia Assessment: - This assessment was completed [Time ofAssessment] prior to the administration of sedation. The benefits, risks and alternatives of theprocedure and sedation were discussed and informed consentwas obtained. All questions were answered. Please referto the signed informed consent document in the medical record. The bowel preparation used was Miralax and bisacodyl tablets via single dose instruction. The scope was passed under direct vision. TheColonoscope [id number] was introduced through the anus and advanced to the the cecum, identified by appendiceal orifice and ileocecal valve. The colonoscopy was performed without difficulty. The patient tolerated the procedure well. The qualityof the bowel preparation was excellent. The ileocecal valve, appendiceal orifice, and rectum were photographed. Findings: Hemorrhoids were found on perianal exam. Multiple large-mouthed diverticula were found in the transverse colon and ascending colon. The exam was otherwise without abnormality. Electronically signed by Bridger Thomas M.D. Bridger Thomas M.D. 10/17/2021 9:31:56 AM Number of Addenda: 0 Note Initiated On: 10/17/2021 8:29 AM Procedure Code(s): --- Professional --- G0121, Colorectal cancer screening; colonoscopy on individual not meeting criteria for high risk Diagnosis Code(s): --- Professional --- K57.30, Diverticulosis of large intestine without perforation orabscess without bleeding K64.9, Unspecified hemorrhoids Z12.11, Encounter for screening for malignant neoplasm of colon CPT copyright 2020 [employer]. All rights reserved. The codes documented in this report are preliminary and upon stoker erector and servicer reviewmay be revised to meet current compliance requirements. Recognized by the [employer] for promoting quality in endoscopy Bridger Thomas MD ENDOSCOPY PROCEDURES Final Re sult * Hepatitis C antibody (06/10/2021 10:57 AM CIRCUITS ENGINEER) Hep C Ab Nonreactive Nonreactive LEYDI JOSE Comment: Interpretive Data Nonreactive: Antibodies to HCV not detected. Does NOT exclude the possibility of recent exposure to HCV. Equivocal: Equivocal for HCV antibodies. Supplemental molecular testing will be automatically performed to determine infection status in accordance with current CDC screening recommendations. Reactive: Positive for HCV antibodies. This may represent current or past HCV infection. Supplemental molecular testing will be automatically performed to determine current infection status in accordance with current CDC screening recommendations. Interpretive data was last revised on 2019. Blood 06/10/2021 10:5 7 AM CIRCUITS ENGINEER 06/10/2021 4:43 PM CIRCUITS ENGINEER Omid Dimas MD LAB MICROBIOLOGY - GENERA L ORDERABLES Final Result LEYDI [address] Department [place] [address] from Last 3 Months or Most Recently Relevant to Health Maintenance [place] [address] [facility]ENA [facility] [employer]NA [facility] ADVANTRA Advance Directives For more information, please contact: [phone] * Full Code (Latest Code Status on File) Date Activated Date Inactivated Comments 10/17/2021 8:39 AM 10/17/2021 2:34 PM * Full Code Date Activated Date Inactivated Comments 10/17/2021 8:39 AM 10/17/2021 8:39 AM Care Teams Auto Brake Technician Relationship Specialty Start Date End Date [place] [address] PCP - General Family Medicine 05/20/21
--- OUTSIDE RECORDS SUMMARY | 2024-12-25 09:32 | XMS_ITS ---
Author Organization [facility] Address [address] [facility] [address] [place], [place] [address] Care Team Providers Care Medical Intern Name Role Phone Omid Dimas Primary Care Provider Reynold Terrazas Unavailable [phone] REASON FOR VISIT 1 year F/U hearing//aw Encounters Encounter Location Date Provider Diagnosis [facility] [address] [facility] [address] [place], [place] [id number] 11/27/2023 Reynold Garza Plan Of Treatment No Information Progress Notes * Kerry DHILLON ADOB:[birth year] (69 yo F)Acc No.[id number]:11/27/2023 Progress Note Patient: Thomas VICTORIA Kerry Haskins Provider: Carlos Garza DO :1955 A ge:68 Y S ex:Female Date:11/27/2023 Address:[address] [place], [place] [id number] Pcp:Omid Dimas Subjective: * Chief Complaints: * 1 . 1 year F/U hearing//aw. * Medical History: Objective: * Vitals: * Physical Examination: Assessment: Plan: * Treatment: * * Electronic signature of Kira Garza DO, [id number] on 12/25/2024 at 09:31 AM CDT Sign off status: Pending * Provider: Carlos Garza DO Date: 11/27/2023 Generated for Jose Luis ng/Faxing/eTransmitting on: 12/25/2024 09:31 AM CDT
--- OUTSIDE RECORDS SUMMARY | 2024-12-25 09:32 | XMS_ITS | Clinical Summary ---
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 Assessment & Plan (11/22/2023 4:53 PM CDT): Stable, well controlled, improving; patient reports he had been tapering her Prozac; continues to have few postmenopausal symptoms Continue fluoxetine 20 mg daily Assessment & Plan (06/10/2021 1:54 PM LANDING WORKER): Stable, well controlled, continue Prozac 20 mg daily Encounter for screening colonoscopy 06/09/2021 Overview (06/09/2021): Added automatically from request for surgery [id number] Photoaged skin 09/12/2016 Skin neoplasm 08/11/2013 Actinic keratosis 08/11/2013 Encounters Date Type Department Care Team Description 11/25/2024 8:00 AM CDT [facility] Visit [facility] [address] [address] Omid Dimas MD Medicare annual wellness visit, subsequent (Primary Dx); Need for hepatitis B screening test; Encounter for screening mammogram for malignant neoplasm of breast; Dyslipidemia; Age-related osteoporosis without current pathological fracture 11/19/2024 10:00 AM CDT Lab [facility] [address] [place] [address] Dyslipidemia; Need for hepatitis B screening test 11/19/2024 Results Follow-Up [facility] [address] [place] [address] Omid Dimas MD Comprehensive metabolic panel, CBC with auto differential, Lipid panel, Additional followed-up results: 5 11/18/2024 Telephone [facility] [address] [place] [address] Omid Dimas MD labwork from Last 3 Months Immunizations Immunization Administration Dates Next Due Influenza, Unspecified 03/28/2024,04/29/2023,05/2021 Pfizer SARS-CoV-2 Monovalent Vaccination (12+ Yrs) PURPLE 04/01/2021,03/11/2021 Tdap 07/30/2013 ZOSTER LIVE 03/08/2017 Surgical History Surgery Date Site/Laterality Comments HYSTEROSCOPY VERTEBROPLASTY 07/30/2007 - 07/29/2008 COLONOSCOPY 07/30/2011 - 07/29/2012 @[facility] EYE SURGERY 11/27/2022 - 12/27/2022 Bilateral cataract surgery CATARACT EXTRACTION Medical History Medical History Date Comments Back injury broken back as a child Pelvis fracture (HCC) 2013 Arthritis Osteoporosis Family History Medical History Relation Name Comments Cancer Brother Virgilio Jackson Heart disease Father Sonylucila Jackson Hypertension Father Sonylucila Jackson Stroke Father Sony Jackson Arthritis Mother Nicki Jackson Breast cancer Mother Nicki Jackson Cancer Mother Nicki Jackson Cancer Other 1 Cancer - (Added by TW Conv) Hypertension Other 2 Hypertension - (Added by TW Conv) Heart disease Other 3 Heart Disease - (Added by TW Conv) No Known Problems Sister 1 No Known Problems Sister 2 Relation Name Status Comments Brother Virgilio Jackson Alive Father Sony Jackson (Age 89) Mother Nicki Jackson (Age 65) Other 1 Other 2 Other 3 Sister 1 Alive Sister 2 Alive Social History Tobacco Use Types Packs/Day Years [...] on file Legal Sex Female 7:01 AM LANDING WORKER Gender Identity Not on file Sexual Orientation Not on file Obstetrics History Last Filed Vital Signs Vital Sign Reading [...] 11/25/2024 7:56 AM CDT Plan of Treatment Health Maintenance Due Date Last Done Comments Pneumococcal vaccine 65+ (1 of 1 - PCV) 2007 Zoster Vaccine (2 of 3) 05/03/2017 03/08/2017 DTaP/Tdap/Td Vaccine (2 - Td or Tdap) 07/30/2023 07/30/2013 Covid-19 Vaccine (3 - 2023-2 5 season) 2024 04/01/2021, 03/11/2021 Osteoporosis Screening-Bone Density Scan 09/29/2024 09/29/2022 Breast Cancer Screening-Mammogram 12/10/2024 12/11/2023, 10/11/2022, 08/09/2020 Depression Screening 11/25/2025 11/25/2024, 11/22/19 24 Fall Risk Assessment 11/25/2025 11/25/2024, 06/17/2024, 11/22/2023, Additional history exists Well Visit 65+ 11/25/2025 11/25/2024, 11/22/2023 Colon Cancer Screening-Colonoscopy 10/18/2031 10/17/2021 Hepatitis C Screening Completed 06/10/2021 Colon Cancer Screening-CT Colonography Discontinued 10/17/2021 Colon Cancer Screening-DNA Stool Discontinued 10/18/19 Colon Cancer Screening-FIT Discontinued 10/17/2021 Colon Cancer Screening-Sigmoidoscopy Discontinued 10/17/2021 Influenza Vaccine Completed 03/28/2024, , 05/09/2021 Hepatitis B Screening Completed 11/19/2024 Procedures Procedure Name Priority Date/Time Associated Diagnosis [...] HEPATITIS C ANTIBODY Routine 06/10/2021 10:57 AM LANDING WORKER Encounter for hepatitis C screening test for [...] was last reviewed 2021. Testing performed by: [facility], [address] [place] [address]., [address] Blood 11/19/2024 9:59 AM CDT 11/19/2024 2:47 PM CDT us Omid Dimas MD LAB BLOOD ORDERABLES Yamel l Result LEYDI SYED ORIENT) [address] [facility] Department [place] [address] * Differential, auto (11/19/2024 9:59 AM CDT) Neutrophil abs 1.97 1.50 - 6.50 K/cumm Comment:Testing performed by : [address] [address] Imm gran abs 0.00 0.00 - 0.10 K/cumm [facility] (AGUSTIN) Comment:Testing performed by : [facility], [address] [place] [address]., [address] Lymphocyte abs 1.62 0.80 - 3.30 K/cumm [facility] ([place]) Comment:Testing performed by : [facility], [address] [place] [address]., [address] Monocyte abs 0.34 0.20 - 0.80 K/cumm [facility] ([place]) Comment:Testing performed by : [facility], [address] [place] [address]., [address] Eosinophil abs 0.05 0.00 - 0.50 K/cumm [facility] ([place]) Comment:Testing performed by : [facility], [address] [place] [address]., [address] Basophil abs 0.03 0.00 - 0.10 K/cumm [facility] ([place]) Comment:Testing performed by : [facility], [address] [place] [address]., [address] Neutrophil pct 49.2 % [facility] ([place]) Comment: Interpretive Data Percent cell count reference ranges are not reported, since discordance with absolute values may lead to misinterpretation of CBC data. Current Interpretive Data was last revised on 2017. Testing performed by: [facility], [address] [place] [address]., [address] Imm gran pct 0.0 % [facility] ([place]) Comment: Interpretive Data Percent cell count reference ranges are not reported, since discordance with absolute values may lead to misinterpretation of CBC data. Current Interpretive Data was last revised on 2017. Testing performed by: [facility], [address] [place] [address]., [address] Lymphocyte pct 40.4 % [facility] ([place]) Comment: Interpretive Data Percent cell count reference ranges are not reported, since discordance with absolute values may lead to misinterpretation of CBC data. Current Interpretive Data was last revised on 2017. Testing performed by: [facility], [address] [place] [address]., [address] Monocyte pct 8.5 % [facility] ([place]) Comment: Interpretive Data Percent cell count reference ranges are not reported, since discordance with absolute values may lead to misinterpretation of CBC data. Current Interpretive Data was last revised on 2017. Testing performed by: [facility], [address] [place] [address]., [address] Eosinophil pct 1.2 % CADEN SY[facility] (AGUSTIN) Comment: Interpretive Data Percent cell count reference ranges are not reported, since discordance with absolute values may lead to misinterpretation of CBC data. Current Interpretive Data was last revised on 2017. Testing performed by: [address], [address] Basophil pct 0.7 % [facility] ([place]) Comment: Interpretive Data Percent cell count reference ranges are not reported, since discordance with absolute values may lead to misinterpretation of CBC data. Current Interpretive Data was last revised on 2017. Testing performed by: [address], [address] Blood 11/19/2024 9:59 AM CDT 11/19/2024 2:40 PM CDT us Omid Dimas MD LAB BLOOD ORDERABLES Yamel zimmerman Result LEYDI SYED (ORIENT) [address] [facility] Department [place] [address] * (ABNORMAL) CBC with auto differential (11/19/2024 9:59 AM CDT) WBC 4.01 3.80 - 9.90 K/cumm Comment:Testing performed by : [address] [address] Hgb 11.0(L) 11.9 - 15.5 g/dL LEYDI SYED (AGUSTIN) Comment:Testing performed by : [address], [address] Hct 35.1(L) 35.6 - 45.5 % LEYDI SYED (AGUSTIN) Comment:Testing performed by : [address], [address] Plt 283 150 - 400 K/cumm LEYDI SYED (AGUSTIN) Comment:Testing performed by : [address], [address] MPV 9.8 9.1 - 12.3 fL [facility] ([place]) Comment:Testing performed by : [address], [address] RBC 3.66(L) 3.90 - 5.20 M/cumm [facility] ([place]) Comment:Testing performed by : [address], [address] MCV 95.9 81.3 - 96.4 fL [facility] ([place]) Comment:Testing performed by : [address], [address] MCH 30.1 27.1 - 33.3 pg [facility] ([place]) Comment:Testing performed by : [address], [address] MCHC 31.3(L) 32.3 - 35.7 g/dL [facility] ([place]) Comment:Testing performed by : [address], [address] RDW CV 12.7 11.1 - 14.9 % [facility] ([place]) Comment:Testing performed by : [address], [address] RDW SD 45.0 35.7 - 48.1 fL [facility] ([place]) Comment:Testing performed by : [address], [address] NRBC abs 0.00 0.00 - 0.01 K/cumm [facility] ([place]) Comment:Testing performed by : [address], [address] Blood 11/19/2024 9:59 AM CDT 11/19/2024 2:40 PM CDT us Omid Dimas MD LAB BLOOD ORDERABLES Yamel zimmerman Result [facility] ([place]) [address] [facility] [place] [address] * Hepatitis B core antibody, total Blood (11/19/2024 9:59 AM CDT) Hep B core IgG/IgM Nonreactive Nonreactive Comment:Testing performed by : [facility], [address] [place]., [address] Blood 11/19/2024 9:59 AM CDT 11/20/2024 2:11 PM CDT Omid Dimas MD LAB MICROBIOLOGY - avocarrot L ORDERABLES Final Result LEYDI SYED (ORIENT) [address] [facility] [place] [address] * Hepatitis B surface antibody (immune status) [...] last revised on 19. Testing performed by: [address] [address] Blood 11/19/2024 9:59 AM CDT 11/19/2024 2:44 PM CDT Omid Dimas MD LAB MICROBIOLOGY - avocarrot L ORDERABLES Final Result [facility] (ORIENT) 1 [facility] [place] [address] * Hepatitis B Surface Antigen Blood (11/19/2024 9:59 AM CDT) HepBsAg Nonreactive Nonreactive Comment:Testing performed by : [address], [place]., [address] Blood 11/19/2024 9:59 AM CDT 11/19/2024 2:44 PM CDT us Omid Dimas MD LAB MICROBIOLOGY - GENERA L ORDERABLES Final Result LEYDI KUNAL (AGUSTIN) [address] [facility] Department [place] [address] * Lipid panel (11/19/2024 9:59 AM CDT) [...] last revised on 2018. Testing performed by: [facility], [address] [place] [address]., [address] Triglycerides 67 <=149 mg/dL LEYDI SYED (AGUSTIN) Comment: Interpretive Data [...] last revised on 2018. Testing performed by: [facility], [address] [place] [address]., [address] HDL 68 >=40 mg/dL LEYDI Guzman (AGUSTIN) Comment: Interpretive Data Ages < or [...] last revised on 2018. Testing performed by: [facility], [address] [place] [address]., [address] LDL, calculated 111 <=129 mg/dL LEYDI SYED [...] 2. NCEP Expert Panel. Circulation 2004;110:227 3. Tahri Rowe al. BALAJI Cardiol. 2019November 27;5(5):540-548. doi: 10.1001/jamacardio.2020.0013 Current Interpretive Data was last revised on 2024. Testing performed by: [facility], [address] [place] [address]., [address] Non-HDL Cholesterol 123 mg/dL LEYDI SYED (AGUSTIN) [...] last revised on 2018. Testing performed by: [address] [address] Chol/HDL ratio 3 LUCIONE Cezar SYED (AGUSTIN) Comment:Testing performed by : [address], [address] Blood 11/19/2024 9:59 AM CDT 11/19/2024 2:39 PM CDT us Omid Dimas MD LAB BLOOD ORDERABLES Yamel zimmerman Result LEYDI SYED (AGUSTIN) [address] [facility] Department [place] [address] * (ABNORMAL) Comprehensive metabolic panel (11/19/2024 9:59 AM CDT) Sodium 134(L) 135 - 145 mmol/L Comment:Testing performed by : [facility], [address] [place] [address], [address] Potassium, pl 4.5 3.3 - 4.9 mmol/L [facility] ([facility]) Comment:Testing performed by : [facility], [address] [place] [address], [address] Chloride 97 97 - 110 mmol/L [facility] ([place]) Comment:Testing performed by : [address], [address] CO2 29 22 - 32 mmol/L [facility] ([place]) Comment:Testing performed by : [address], [address] Anion gap 8 2 - 15 mmol/L [facility] ([place]) Comment:Testing performed by : [address], [address] BUN 12 6 - 25 mg/dL [facility] ([place]) Comment:Testing performed by : [address], [address] Creatinine 0.86 0.60 - 1.10 mg/dL [facility] ([place]) Comment:Testing performed by : [address] [address] Glucose 82 70 - 199 mg/dL [facility] ([place]) Comment: Interpretive Data Fasting glucose [...] was last revised 2022. Testing performed by: [address] [address] Calcium 9.3 8.5 - 10.3 mg/dL [facility] ([place]) Comment:Testing performed by : [address], [address] Bilirubin, total 0.5 0.1 - 1.2 mg/dL [facility] ([place]) Comment:Testing performed by : [address], [address] Protein, pl 6.8 6.5 - 8.5 g/dL [facility] ([place]) Comment:Testing performed by : [address], [address] Albumin 3.9 3.5 - 5.0 g/dL [facility] ([place]) Comment:Testing performed by : [address], [address] Alk phos 70 40 - 130 Units/L [facility] ([place]) Comment:Testing performed by : [address], [address] ALT 8 7 - 45 Units/L [facility] ([place]) Comment:Testing performed by : [address], [address] AST 21 10 - 45 Units/L [facility] ([place]) Comment:Testing performed by : [address], [address] Blood 11/19/2024 9:59 AM CDT 11/19/2024 2:39 PM CDT us Omid Dimas MD LAB BLOOD ORDERABLES Yamel l Result LEYDI SYED ORIENT [address] [facility] Department [place] [address] * SCREENING MAMMOGRAM BILATERAL W JOHNATHON (12/11/2023) [...] Thomas MD - 10/17/2021 8:29 AM CDT [facility] Patient Name: Kerry Vasques Procedure Date: 10/17/2021 8:29 AM Date of : 1955 Admit Type: Outpatient Age: 66 Gender: Female Attending MD: Bridger Thomas M.D. Room: [facility] ENDOSCOPY ROOM 2 Note Status: Finalized Patient [...] scope was passed under direct vision. TheColonoscope [id number] was introduced through the anus and advanced [...] malignant neoplasm of colon CPT copyright 2020 [employer]. All rights reserved. The codes documented in this report are preliminary and upon contact lens manufacturer reviewmay be revised to meet current compliance requirements. Recognized by the [employer] for promoting quality in endoscopy Bridger Thomas MD ENDOSCOPY PROCEDURES Final Re sult * Hepatitis C antibody (06/10/2021 10:57 AM LANDING WORKER) Hep C Ab Nonreactive Nonreactive LEYDI JOSE [...] on 2019. Blood 06/10/2021 10:5 7 AM LANDING WORKER 06/10/2021 4:43 PM LANDING WORKER us Omid Dimas MD LAB MICROBIOLOGY - GENERA L ORDERABLES Final Result LEYDI JOSE [address] Department [place] [address] from Last 3 Months or Most Recently Relevant to [place] [address] [facility]ANT [facility] [place] [address] [place] [address] Advance Directives For more information, please contact: [phone] * Full Code (Latest Code Status on File) Date Activated Date Inactivated Comments 10/17/2021 8:39 AM 10/17/2021 2:34 PM * Full Code Date Activated Date Inactivated Comments 10/17/2021 8:39 AM 10/17/2021 8:39 AM Care Teams Mud Worker Relationship Specialty Start Date End Date [place] [address] PCP - General Family Medicine 05/20/21
--- OUTSIDE RECORDS SUMMARY | 2024-12-25 09:32 | XMS_ITS | Patient Health Record ---
Author Organization [facility] Address [address] [place], [place] [address] Care Team Providers Care Chargemaster Analyst Name Role Phone Omid Dimas Primary Care Provider Reynold Terrazas Unavailable [phone] Migration, Provider Unavailable Unavailable Allergies Allergen (clinical drug ingredient) Drug/Non Drug Allergy documented on EMR Reaction Allergy Type Onset Date Status DAIRY (uncoded) Unknown Allergy Acti ve SOY (uncoded) Unknown Allergy Active Gluten Gluten Unknown Allergy Active Reason For Referral No Information Medications Medication SIG (Take, Route, Frequency, Duration) Notes Start Date End Date Status FLUoxetine HCl 10 MG 1 cap(s) orally once a day Active B-12 *Please review a nd pick correct strength-formulation from Mobioticsan options. If intended option is not shown, discontinue and re-order from Quick Search* Active Calcium 500 + D *Please review a nd pick correct strength-formulation from Commonplace Digitalspan options. If intended option is not shown, discontinue and re-order from Quick Search* Active Immunizations Vaccine Route Administration Date Status Comme nts Influenza Unknown 04/13/2016 Administered Influenza Unknown 09/12/2017 Administered Pneumococcal Unknown 09/12/2017 Refused Problems Problem Type SNOMED Code ICD Code Onset Dates Problem Status W/U Status Risk Notes Problem Allergic rhinitis due to food (653210021) Allergic rhinitis due to food (J30.5) Active confirmed Problem Sensorineural hearing loss, bilateral (H90.3) Active confirmed Problem Bilateral tinnitus (7716261864393 ) Tinnitus, bilateral (H93.13) Active confirmed Encounters Encounter Location Date Provider Diagnosis [facility] [address] [place], [place] [id number] 07/12/2024 Provider Migration Plan Of Treatment No Information Insurance Providers Payer Name Payer Address Payer Phone Subscriber Number Group Number Insured Name Patient Relationship to Insured Coverage Start Date Coverage End Date [employer] Medicare Advantage Choice PPO [address] [address] [place] [address] [id number] Kerry Vasques Self - patient is the insured Medical (General) History Medical History History ICD Code Pertinent Medical History: None, Pertinent Medical History: Anxiety/Depre ssion, Surgical History Surgery Date(Month/Year) vertivoplasty hysteroscopy
--- OUTSIDE RECORDS SUMMARY | 2024-12-25 09:32 | XMS_ITS ---
Author Organization [facility] Address [facility] [address] [facility] [address] [place], [place] [address] Care Team Providers Care Assignment Officer Name Role Phone Omid Dimas Primary Care Provider UnavailReynold Brooks Unavailable [phone] Migration, Provider Unavailable Unavailable Allergies Allergen (clinical drug ingredient) Drug/Non Drug Allergy documented on EMR Reaction Allergy Type Onset Date Status DAIRY (uncoded) Unknown Allergy Acti ve SOY (uncoded) Unknown Allergy Active Gluten Gluten Unknown Allergy Active REASON FOR VISIT Multum To Medispan Conversion Encounter Medications Medication SIG (Take, Route, Frequency, Duration) Notes Start Date End Date Status FLUoxetine HCl 10 MG 1 cap(s) orally once a day Active B-12 *Please review a nd pick correct strength-formulation from Medispan options. If intended option is not shown, discontinue and re-order from Quick Search* Active Calcium 500 + D *Please review a nd pick correct strength-formulation from Medispan options. If intended option is not shown, discontinue and re-order from Quick Search* Active Encounters Encounter Location Date Provider Diagnosis [facility] [place] [address] [address] [facility] [place], [place] [id number] 07/12/2024 Provider Migration Plan Of Treatment No Information Progress Notes * Kerry DHILLON ADOB:[birth year] (69 yo F)Acc No.[id number]:07/12/2024 Patient: Thomas Kerry VICTORIA Provider: Yolie dahl Migration :1955 A ge:69 Y S ex:Female Date:07/12/2024 Address:[address] [place], [place] [address] Pcp:Omid Dimas Subjective: * Chief Complaints: * 1 . Multum To Medispan Conversion Encounter. * Medical History: * Medications: T aking B-12 , Notes to Pharmacist: *Please review and pick correct strength-formulation from Medispan options. If intended option is not shown, discontinue and re-order from Quick Search*, Taking Calcium 500 + D , Notes to Pharmacist: *Please review and pick correct strength-formulation from Medispan options. If intended option is not shown, discontinue and re-order from Quick Search*, Taking FLUoxetine HCl 10 MG Capsule 1 cap(s) orally once a day * Allergies: G luten, DAIRY, SOY. Objective: * Vitals: * Physical Examination: Assessment: Plan: * Treatment: * * Electronic signature of Mynor snell Migration on 12/25/2024 at 09:31 AM CDT Sign off status: Pending * Provider: Yolie dahl Migration Date: 09/12/2023 Generated for Jose Luis fallon/Lynette/Jay Jay on: 12/25/2024 09:31 AM CDT
--- OUTSIDE RECORDS SUMMARY | 2024-12-25 09:32 | XMS_ITS | Encounter Summary ---
Author Organization [facility] Healthcare Address [address] [place] [id number] Care Team Providers Care Thin Film Technician Name Role Phone Omid Dimas MD Primary Care Provider [phone] Encounter Details Date Type Department Care Team (Late st Contact Info) Description 11/19/2024 Results [facility]-Up [facility] [address] [place] [address] Omid Dimas MD 163 COUNT INCLUDES THE [facility] [place] [address] Comprehensive metabolic panel, CBC with auto differential, Lipid panel, Additional followed-up results: 5 Social History Tobacco Use Types Packs/Day Years Used Date Smoking Tobacco: Never Cigarettes Smokeless Tobacco: Never AUDIT-C Answer Date Recorded Q1: How often [...] points, staff should administer the PHQ-9) 0 11/22/2023 Comments Unknown Sex and Gender Information Value Date Recorded Sex Assigned at Not on file Legal Sex Female 7:01 AM [employer]AX REVENUE OFFIC[employer] Gender Identity Not on file Sexual Orientation Not on file documented as of this encounter Plan of Treatment Not on file documented as of this encounter Visit Diagnoses Not on filedocumented in this encounter Care Teams Thin Film Technician Relationship Specialty Start Date End Date Omid Dimas MD [address] [place] [address] PCP - General Family Medicine 05/20/21 documented as of this encounter
== END 2024-12-25 09:28 | disposition home or self-care (01) ==
LOC: ANHIMG 09:28
PROVIDERS: PCP Hospitalist; Visit Provider Obstetrics & Gynecology
DX: Z12.31 Encounter for screening mammogram for malignant neoplasm of breast (principal)
CPT/HCPCS: 77063; 77067